=== PATIENT | male | born 1980 | race Caucasian/White ===

== ENCOUNTER 2020-11-22 03:54 | Inpatient (IN) | payer SELFPAY ==
[2020-11-22] VITALS (15 sets, daily range): BP systolic 127–144; BP diastolic 74–88; PULSE 77–100; RESP 13–22; TEMP 36.1–37.1; O2SAT 94–98; BMI 28.2
--- NOTE | ~2020-11-22 | CT_ITS ---
EXAMINATION: CTA chest PE protocol EXAM DATE: 11/22/2020 05:58 INDICATION: L chest pain, shortness of breath hx of PE . TECHNIQUE: Spiral CTA of the chest (pulmonary arteries) was performed with 100 cc Omnipaque 350 intr avenous contrast injection. Images were acquired during the pulmonary arterial phase. Coronal maxi mum intensity projection 3D-reconstructions were created by the technologist on dedicated workstation . Axial, coronal and sagittal reformatted images were reviewed. The dose-length product (DLP) for t his examination was 584.11 mGy-cm. The exposure was tailored according to patient size (auto mA exp osure control), and iterative reconstruction (ASIR) was used as additional dose reduction technique. There is no prior study for comparison. FINDINGS: There is suboptimal pulmonary arterial enhancement, however right lower lobe intralobar an d several segmental right middle and lower lobe pulmonary emboli are confirmed, smaller left lower lo be segmental pulmonary emboli. Moderate clot burden. No thoracic aortic dissection. Left lower lobe airspace disease with volume loss most consistent with segmental atelectasis. Right basilar granulom a. Small left pleural effusion. Tracheobronchial tree is patent. There is no mediastinal, hilar or axillary lymphadenopathy. There is no pneumothorax. Mild cardiomegaly. No evidence of coronary arterial calcification. Upper abdomen is unremarkable. There is thoracic spondylosis without osteo blastic or osteolytic lesions identified. IMPRESSION: 1. Bilateral lower lobe and right middle lobe pulmonary emboli, moderate clot burden. 2. Mild cardiomegaly. 3. Small left pleural effusion. 4. Left basilar segmental atelectasis. Reviewed, dictated and finalized at location D. Findings were verbally conveyed to Liborio Nicholson MD according to STAT Rad report documenta tion.
--- NOTE | ~2020-11-22 | US_ITS ---
EXAMINATION: US venous doppler LE EXAM DATE: 11/22/2020 15:47 INDICATION: Pulmonary embolism. TECHNIQUE: Multiple grayscale, color flow and Doppler images of the lower extremity deep venous syste ms bilaterally were obtained and reviewed. Correlation is made to pulmonary CT earlier same date. FINDINGS: Right side: The right common femoral, femoral and profunda veins demonstrate normal color flow, respi ratory variation, augmentation and compressibility. Compressibility, color flow confirmed within the right popliteal, posterior tibial, peroneal, and greater saphenous veins. Left side: The left common femoral, femoral and profunda veins demonstrate normal color flow, respira tory variation, augmentation and compressibility. Compressibility, color flow confirmed within the l eft popliteal, posterior tibial, peroneal, and greater saphenous veins. IMPRESSION: 1. No lower extremity deep venous thrombosis bilaterally. Reviewed, dictated and finalized at location B.
--- NOTE | ~2020-11-22 | XR_ITS ---
EXAMINATION: XR shoulder LT min 2V INDICATION: Left shoulder pain TECHNIQUE: Four views of the left shoulder are submitted. COMPARISON: None FINDINGS: Normal alignment. No fracture. Glenohumeral and acromioclavicular joint spaces are normal. Soft tissues are unremarkable. IMPRESSION: 1. No acute osseous abnormality. Reviewed, dictated and finalized at location A.
--- NOTE | ~2020-11-22 | XR_ITS ---
EXAMINATION: XR chest 1V portable DATE: 11/22/2020 04:56 INDICATION: Shortness of breath TECHNIQUE: frontal view of the chest was obtained. COMPARISON: None FINDINGS: Small lung volumes with mild opacities at the bilateral lung bases. No pleural effusion or pneumothor ax. The cardiomediastinal silhouette is normal. Visualized bones and soft tissues are unremarkable. IMPRESSION: 1. Small lung volumes with mild bibasilar opacities and favor atelectasis over pneumonia. Reviewed, dictated and finalized at location A.
--- NOTE | 2020-11-22 03:57 | ECG_ITS ---
Measurements Intervals [place] Rate: 99 P: 40 [place]: 144 QRS: 11 QRSD: 93 T: 10 QT: 348 QTc: 448 Interpretive Statements SINUS RHYTHM POSSIBLE LEFT ATRIAL ENLARGEMENT INCOMPLETE RIGHT BUNDLE BRANCH BLOCK POSSIBLE LEFT VENTRICULAR HYPERTROPHY BASELINE ARTIFACT- II, III, AVF, V1, V3-V6 BORDERLINE ECG Electronically Signed On 11-22-2020 11:51:52 CDT by Jalen Acuna D.O.
[2020-11-22 04:37] LABS: Basophils Percent Auto 0.4 % (0.2-1.2); Eosinophils Absolute Auto 0.2 K/mm3 (0-0.3); Hematocrit 38.6 % (42.0-52.0); Hemoglobin 13.1 g/dL (14.0-18.0); Immature Granulocyte Absolute 0.04 K/mm3 (0.00-0.031); Immature Granulocyte Percent A 0.5 % (0-0.5); Lymphocytes Absolute Auto 1.42 K/mm3 (0.9-3.2); Lymphocytes Percent Auto 17.5 % (18.3-44.2); Mean Corpuscular HGB Conc 33.9 g/dl (32-36); Mean Corpuscular Hemoglobin 30.3 pg (26-34); Mean Corpuscular Volume 89.4 fl (80-100); Monocytes Absolute Auto 0.8 K/mm3 (0.1-0.6); Monocytes Percent Auto 9.4 % (2.6-8.5); Neutrophils Absolute Auto 5.7 K/mm3 (1.3-6.7); Neutrophils Percent Auto 70.2 % (45.5-73.1); Platelet Count Result 272 k/mm3 (150-375); Red Blood Count 4.32 M/mm3 (4.6-6.20); Red Cell Distribution Width 11.8 % (11.5-14.5); White Blood Count 8.1 K/mm3 (4.5-10.0)
[2020-11-22 04:49] LABS: Anion Gap 11 mmol/L (8-16); Blood Urea Nitrogen 8 mg/dL (9-20); Calcium 8.6 mg/dL (8.4-10.2); Carbon Dioxide 24 mmol/L (22-30); Chloride 103 mmol/L (98-107); Estimated CRCL calculation 123 ml/min; Estimated Glomerular Filt Rate > 60; Glucose 122 mg/dL (65-110); Potassium 4.2 mmol/L (3.4-5.0); Sodium 138 mmol/L (137-145)
--- NOTE | 2020-11-22 05:21 | ED.GENADULT ---
HPI - General Adult General Chief complaint: Shortness of Breath/Dyspnea Stated complaint: sob, back/shoulder pain Time Seen by Provider: 11/22/20 05:02 History of Present Illness HPI narrative: Patient 39-year-old gentleman who presents the emergency department with chief complaint of shortness of breath. 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 Patient states that he had sudden onset of shortness of breath the other evening and was resting in his cab hoping it would go away and noticed that it would not resolve. The patient states he also has a sharp pleuritic type pain in his chest that is worse with inspiration patient reports that about 10 years ago he had a pulmonary embolism and has been off of anticoagulation Related Data Home Medications Medication Instructions Recorded Confirmed clonazepam 0.5 mg PO DAILY 11/22/20 metoprolol tartrate 50 mg PO DAILY 11/22/20 Allergies Allergy/AdvReac Type Severity Reaction Status Date / Time No Known Allergies Allergy Verified 11/22/20 04:02 Exam Narrative: GENERAL: Well-appearing, well-nourished, and in no acute distress. HEAD: Normocephalic, atraumatic. EYES: PERRLA and EOMI. ENT: Nares clear, no rhinorrhea or epistaxis. Mucous membranes moist. NECK: Supple. CHEST: Clear to auscultation. No respiratory distress. HEART: Regular rate and rhythm. No murmur heard. Normal peripheral pulses. ABDOMEN: Soft, nontender, nondistended, normal active bowel sounds. EXTREMITIES: Normal range of motion. No edema. SKIN: Warm, dry, no rash. NEURO: No focal deficits. Alert and oriented x3. PSYCH: Normal mood and affect. Course Vital Signs Vital signs: Vital Signs Temperature 37.1 C 11/22/20 03:52 Pulse Rate 100 11/22/20 03:52 Respiratory Rate 22 H 11/22/20 03:52 Blood Pressure 142/87 H 11/22/20 03:52 Pulse Oximetry 98 11/22/20 03:52 Temperature 37.1 C 11/22/20 03:52 Pulse Rate 88 11/22/20 06:44 Respiratory Rate 16 11/22/20 06:44 Blood Pressure 132/85 11/22/20 06:44 Pulse Oximetry 95 11/22/20 06:44 Medical Decision Making Vital Signs Vital Signs: Vital Signs Temperature 37.1 C 11/22/20 03:52 Pulse Rate 100 11/22/20 03:52 Respiratory Rate 22 H 11/22/20 03:52 Blood Pressure 142/87 H 11/22/20 03:52 Pulse Oximetry 98 11/22/20 03:52 Temperature 37.1 C 11/22/20 03:52 Pulse Rate 88 11/22/20 06:44 Respiratory Rate 16 11/22/20 06:44 Blood Pressure 132/85 11/22/20 06:44 Pulse Oximetry 95 11/22/20 06:44 Lab Data Result diagrams: 11/22/20 04:32 11/22/20 04:32 Labs: Lab Results 11/22/20 11/22/20 11/22/20 Range/Units 04:31 04:32 04:32 WBC 8.1 (4.5-10.0) K/mm3 RBC 4.32 L (4.6-6.20) M/mm3 Hgb 13.1 L (14.0-18.0) g/dL Hct 38.6 L (42.0-52.0) % MCV 89.4 (80-100) fl MCH 30.3 (26-34) pg MCHC 33.9 (32-36) g/dl RDW 11.8 (11.5-14.5) % Plt Count 272 (150-375) k/mm3 MPV 10.0 (7.4-10.4) fl Immature Gran % (Auto) 0.5 (0-0.5) % Neut % (Auto) 70.2 (45.5-73.1) % Lymph % (Auto) 17.5 L (18.3-44.2) % [place] % (Auto) 9.4 H (2.6-8.5) % Eos % (Auto) 2.0 (0-4.4) % Baso % (Auto) 0.4 (0.2-1.2) % Lymph # (Auto) 1.42 (0.9-3.2) K/mm3 [place] # (Auto) 0.8 H (0.1-0.6) K/mm3 Eos # (Auto) 0.2 (0-0.3) K/mm3 Baso # (Auto) 0.0 (0.0-0.1) K/mm3 Abs Immat Gran (auto) 0.04 H (0.00-0.031) K/mm3 Absolute Neuts (auto) 5.7 (1.3-6.7) K/mm3 Absolute Nucleated RBC 0.0 (0.0-0.012) K/mm3 Nucleated RBC % 0.0 (0.0-0.2) % PT (11.1-14.7) Seconds INR APTT (22.3-36.8) SECONDS Sodium 138 (137-145) mmol/L Potassium 4.2 (3.4-5.0) mmol/L Chloride 103 (98-107) mmol/L Carbon Dioxide 24 (22
[2020-11-22 05:34] LABS: Alveolar/Arterial O2 Gradient 37.5 mmHg; Base Excess ABG 1.2 mEq/l (+/-2.0); Device ROOM AIR; Fractional Inspired Oxygen 21 %; HCO3 ABG 25.4 mEq/l (22.0-26.0); Oxygen Content ABG 17.9 %vol (16.0-22.0); Oxygen Saturation ABG 93.5 % (95.0-100.0); Oxyhemoglobin 92.7 % THb (90.0-100.0); PCO2 ABG 38.9 mmHg (35.0-45.0); PO2 ABG 65.6 mmHg (80.0-100.0); PO2 FiO2 Ratio Arterial Blood 3.12 %; Site Drawn RIGHT BRACHIAL; Total Hemoglobin 13.7 g/dL (12.0-18.0); pH ABG 7.432 (7.350-7.450)
[2020-11-22 05:34] LABS: Alanine Aminotransferase 15 U/L (4-50); Albumin Level 4.1 g/dL (3.5-5.1); Alkaline Phosphatase 60 U/L (38-126); Aspartate Amino Transferase 21 U/L (17-59); Bilirubin,Total 0.6 mg/dL (0.2-1.3)
[2020-11-22 05:46] LABS: NT Pro B Type Natriuretic Pept 22 pg/mL (5-100); Troponin I < 0.012 ng/mL (0.000-0.034)
[2020-11-22 05:48] LABS: Lactic Acid Reflex 1.6 mmol/L (0.7-2.1)
[2020-11-22 05:49] LABS: INR 0.9; Partial Thromboplastin Time 26.4 SECONDS (22.3-36.8); Prothrombin Time 12.5 Seconds (11.1-14.7)
[2020-11-22 07:42] LABS: Troponin I < 0.012 ng/mL (0.000-0.034)
[2020-11-22] MEDS: LORazepam INJ (*CRX) 2 MG/ML VIAL 0.5 MG IV PUSH (07:52)
[2020-11-22] MEDS: HEPARIN SODIUM 5,000 UNITS/ML VIAL 7000 UNITS IV PUSH ×2 (07:53→15:25)
[2020-11-22] MEDS: HEPARIN SOD/D5W 100 UNITS/ML 25,000 UNITS/250 ML BAG 15 UNITS IV CONT (07:58)
[2020-11-22 08:52] LABS: Partial Thromboplastin Time 139.4 SECONDS (22.3-36.8)
[2020-11-22] MEDS: MORPHINE SULFATE (*CRX) 4 MG/ML INJ IV PUSH (09:13)
[2020-11-22] MEDS: ONDANSETRON INJ 4 MG/2 ML VIAL IV PUSH (09:14)
--- NOTE | 2020-11-22 12:42 | PC.NURSE ---
PT arrived to chest pain center at 1204. C/o chest pain, more with inhaling. RANDOLPH Oliver called at 1235.
--- NOTE | 2020-11-22 13:00 | PM.IMHP ---
H&P: HPI History of Present Illness Date/Time: 11/22/20 13:00 Chief Complaint: Shortness of breath. Narrative: This is a 39-year-old male with history of pulmonary embolism and hypertension who presented to the emergency department earlier today for evaluation of shortness of breath. 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 Within the last several days he developed discomfort in his left posterior upper leg/lower buttock region which he initially attributed to the driving. Yesterday afternoon while unloading his truck he developed sudden onset of lightheadedness as well as pleuritic pain in his left anterior chest radiating into the shoulder as well as mild shortness of breath. He was able to sleep okay overnight but when he woke this morning he was much more short of breath with racing heart prompting him to come in for evaluation. CTA of the chest showed bilateral lower lobe and right middle lobe pulmonary emboli with moderate clot burden and he is being admitted in this setting. At the time my evaluation he continues to feel a short of breath but he admits that he is quite anxious. He is currently rating in his pleuritic pain 7/10. Regarding his history of pulmonary embolism, he was evaluated by pulp mill supervisor in [place] and the workup was reportedly ?inconclusive.? Aside from an on-call there is no other family history of venous thromboembolism. He has not been vaccinated for COVID. No history of malignancy or concerns for such. Review of Systems Review of Systems: Twelve systems were reviewed. Weight has remained stable. No fever, chills, or sweats. No recent cold or flu symptoms. No syncope. He denies nausea, vomiting, diarrhea. Except as documented, all other systems were reviewed and are negative. [facility] Past Medical History Medical History (Updated 11/22/20 @ 14:35 by Tatianna Oliver PA-C) Anxiety Hypertension Nicotine dependence Pulmonary embolism 2008 and November 2020. Evaluated by pulp mill supervisor in [place] with ?inconclusive? hypercoagulability workup. Thoracic vertebral fracture (2000) T1 and T3 fractures sustained an accident. Surgical History Surgical History History of arthroscopy of right knee (2015) Family History Family History (Updated 11/22/20 @ 14:33 by Tatianna Oliver PA-C) Other Deep venous thrombosis Social History Social History (Updated 11/22/20 @ 14:33 by Tatianna Oliver PA-C) Social History: The patient lives in [place], [place] with his and 3 children. He smoked a pack of cigarettes a day for about 25 years and now vapes. No alcohol or illicit substance abuse. He designates his , Arti Luu, as his surrogate decision maker and wishes to be a full code. Meds Home Medications and Allergies Home Medications Medication Instructions Recorded Confirmed Type clonazepam 0.5 mg PO PRN PRN 11/22/20 11/22/20 History metoprolol tartrate 50 mg PO BID 11/22/20 11/22/20 History Allergies Allergy/AdvReac Type Severity Reaction Status Date / Time No Known Allergies Allergy Verified 11/22/20 04:02 Vital Signs Vital Signs - 24 hr 11/22/20 03:52 11/22/20 04:51 11/22/20 06:15 Temperature 98.8 F Pulse Rate 100 95 90 Respiratory Rate 22 H 18 19 Blood Pressure 142/87 H 134/88 132/84 Pulse Oximetry 98 95 96 11/22/20 06:44 11/22/20 07:30 11/22/20 07:51 Temperature Pulse Rate 88 88 93 Respiratory Rate 16 15 Blood Pressure 132/85 144/84 H Pulse Oximetry 95 96 11/22/20 09:30 11/22/20 11:30 11/22/20 12:55 Temperature Pulse Rate 87 92 94 Respiratory Rate 21 H 20 Blood Pressure 129/78 128/83 Pulse Oximetry 94 95 Exam Narrative: General: Well-developed, well-nourished male sitting up in bed. Moderately ill in appearance. Weight: 99.7 kg. BMI: 28.2. HEENT: PERRL, EOMI. Sclerae anicteric. Oral mucosa moist. Oropharynx clear. Neck
--- NOTE | 2020-11-22 13:05 | ECHO_ITS ---
Patient Info Name: Ghanshyam Luu Age: 39 years : 1980 Gender: Male Ht: 74 in Wt: 220 lbs BSA: 2.30 m2 HR: 92 bpm BP: 128 / 83 mmHg Technical Quality: Fair Exam Date: 11/22/2020 2:47 PM Exam Location: [facility] Pul[facility] Patient Status: Outpatient Admit Date: 11/22/2020 Staff Ordering Physician: Tatianna Oliver PA-C Culinary Worker: Gui Shine RDCS, RT Attending Provider: Trish Feliz MD Referring Physician: Melody LIRA; Exam Type: CA echo doppler color flow Study Info Indications I27.82 - Chronic pulmonary embolism Complete two-dimensional, color flow and Doppler transthoracic echocardiogram is performed. Strain analysis performed. Summary 1. Complete two-dimensional, color flow and Doppler transthoracic echocardiogram is performed. 2. Left ventricular chamber dimension is normal. 3. Left ventricular systolic function is normal, estimated at 60-65%. 4. There is mildly increased left ventricular wall thickness. 5. The left ventricular diastolic function is normal. Tissue doppler is not performed. 6. Global longitudinal strain is mildly abnormal at -16.3%. Left Ventricle Global longitudinal strain is mildly abnormal at -16.3%. Left ventricular chamber dimension is normal. Left ventricular systolic function is normal, estimated at 60-65%. There is mildly increased left ventricular wall thickness. The left ventricular diastolic function is normal. Tissue doppler is not performed. Right Ventricle Right ventricular systolic function is normal based on normal TAPSE 2.2 cm. Right ventricular chamber dimension is not well visualized. Left Atria Left atrial chamber dimension is normal. Right Atria Right atrial chamber dimension is normal. Aortic Valve The aortic valve is trileaflet. There is no aortic valve stenosis. There is no aortic valve regurgitation. Pulmonic Valve There is no pulmonic regurgitation. Mitral Valve There is no mitral valve stenosis. There is no mitral valve regurgitation. Tricuspid Valve There is no tricuspid valve regurgitation. Pericardium/Pleural There is no pericardial effusion. Inferior Vena Cava Normal inferior vena cava with >50% collapse upon inspiration consistent with normal right atrial pressure, 5 mmHg. Aorta The aortic root size at the sinus of Valsalva is normal. Left Ventricular Outflow Tract Name Value Normal LVOT 2D LVOT Diameter 2.1 cm LVOT Doppler LVOT Peak Gradient 4 mmHg LVOT Mean Gradient 2 mmHg LVOT VTI 17 cm LVOT VTI/AV VTI Ratio 1.1 LVOT Stroke Volume 59 ml LVOT CO 5.5 l/min LVOT CI 2.4 l/min/m2 Mitral Valve Name Value Normal MV Doppler MV
[2020-11-22] MEDS: MORPHINE SULFATE (*CRX) 2 MG/ML INJ IV PUSH ×2 (13:16→14:15)
[2020-11-22] MEDS: NICOTINE (*PBKC) 14 MG PATCH 1 PATCH TRANSDERM (13:18)
[2020-11-22] MEDS: HYDROcodone/acetaminophen (*CRX) 5-325 MG TABLET 1 TAB PO ×2 (13:37→22:02)
--- NOTE | 2020-11-22 14:16 | PC.NURSE ---
Pt c/o continuous pain, 7-10/15. Tatianna DICKSON at bedside and additional 2 mg Morphine ordered.
[2020-11-22 15:14] LABS: Partial Thromboplastin Time 52.4 SECONDS (22.3-36.8)
[2020-11-22] MEDS: clonazePAM (*CRX) 0.5 MG TABLET PO ×2 (15:29→23:04)
--- NOTE | 2020-11-22 15:32 | PC.NURSE ---
Pt to X-ray for Venous doppler
[2020-11-22] MEDS: HYDROmorphone HCL INJ (*CRX) 1 MG/ML SYR 0.5 MG IV PUSH ×3 (18:02→23:52)
[2020-11-22] MEDS: METOPROLOL TARTRATE 50 MG TAB PO (20:57)
[2020-11-22 21:24] LABS: Partial Thromboplastin Time 107.2 SECONDS (22.3-36.8)
[2020-11-22] MEDS: HEPARIN SOD/D5W 100 UNITS/ML 25,000 UNITS/250 ML BAG 17 UNITS IV CONT (23:07)
[2020-11-23] VITALS (19 sets, daily range): BP systolic 109–150; BP diastolic 66–95; PULSE 65–93; RESP 14–16; TEMP 36.3–36.9; O2SAT 93–98
[2020-11-23] MEDS: HYDROmorphone HCL INJ (*CRX) 1 MG/ML SYR 2 MG IV PUSH (01:22)
[2020-11-23] MEDS: ONDANSETRON INJ 4 MG/2 ML VIAL IV PUSH (01:27)
[2020-11-23] MEDS: HYDROcodone/acetaminophen (*CRX) 5-325 MG TABLET 1 TAB PO ×4 (04:11→23:21)
[2020-11-23 04:32] LABS: Basophils Percent Auto 0.3 % (0.2-1.2); Eosinophils Absolute Auto 0.3 K/mm3 (0-0.3); Eosinophils Percent Auto 3.9 % (0-4.4); Hematocrit 37.2 % (42.0-52.0); Hemoglobin 12.2 g/dL (14.0-18.0); Immature Granulocyte Absolute 0.01 K/mm3 (0.00-0.031); Immature Granulocyte Percent A 0.1 % (0-0.5); Lymphocytes Absolute Auto 2.54 K/mm3 (0.9-3.2); Lymphocytes Percent Auto 36.3 % (18.3-44.2); Mean Corpuscular HGB Conc 32.8 g/dl (32-36); Mean Corpuscular Hemoglobin 29.8 pg (26-34); Mean Corpuscular Volume 90.7 fl (80-100); Mean Platelet Volume 9.8 fl (7.4-10.4); Monocytes Absolute Auto 0.6 K/mm3 (0.1-0.6); Monocytes Percent Auto 8.6 % (2.6-8.5); Neutrophils Absolute Auto 3.6 K/mm3 (1.3-6.7); Neutrophils Percent Auto 50.8 % (45.5-73.1); Platelet Count Result 275 k/mm3 (150-375); Red Cell Distribution Width 11.9 % (11.5-14.5)
[2020-11-23 04:48] LABS: Partial Thromboplastin Time 81.7 SECONDS (22.3-36.8)
[2020-11-23] MEDS: HYDROmorphone HCL INJ (*CRX) 1 MG/ML SYR IV PUSH ×6 (05:26→23:45)
[2020-11-23] MEDS: NICOTINE (*PBKC) 14 MG PATCH 1 PATCH TRANSDERM (08:16)
[2020-11-23] MEDS: METOPROLOL TARTRATE 50 MG TAB PO ×2 (08:18→20:48)
[2020-11-23] MEDS: clonazePAM (*CRX) 0.5 MG TABLET PO (09:44)
[2020-11-23] MEDS: LIDOCAINE 5% PATCH 1 PATCH TRANSDERM (11:52)
[2020-11-23] MEDS: KETOROLAC 30 MG/ML VIAL (*BKC) IV PUSH ×2 (12:03→21:00)
[2020-11-23] MEDS: HEPARIN SOD/D5W 100 UNITS/ML 25,000 UNITS/250 ML BAG 17 UNITS IV CONT (13:35)
[2020-11-23 14:16] LABS: Partial Thromboplastin Time 60.7 SECONDS (22.3-36.8)
[2020-11-23] MEDS: HEPARIN SODIUM 5,000 UNITS/ML VIAL 3500 UNITS IV PUSH (14:43)
--- NOTE | 2020-11-23 17:37 | PM.IMPN ---
Progress Note: A&P Assessment and Plan (1) Bilateral pulmonary embolism: Code(s): I26.99 - Other pulmonary embolism without acute cor pulmonale Status: Acute Assessment and Plan: Imaging shows bilateral lower lobe and right middle lobe pulmonary emboli with moderate clot burden as well as mild cardiomegaly. He has been started on a heparin drip . Given recurrent pulmonary embolism he may very well require long-term anticoagulation and was encouraged to follow-up with his mds rn in [place] upon returning home. (2) Nicotine dependence: Code(s): F17.200 - Nicotine dependence, unspecified, uncomplicated Status: Acute Assessment and Plan: Nicotine patch available per patient request. Smoking cessation is encouraged and was discussed. (3) Hypertension: Code(s): I10 - Essential (primary) hypertension Status: Acute Assessment and Plan: Blood pressures were reviewed and they are stable. Continue metoprolol b.i.d.. (4) Anxiety: Code(s): F41.9 - Anxiety disorder, unspecified Status: Acute Assessment and Plan: Continue clonazepam 0.5 mg as needed for anxiety. (5) Shoulder pain, left: Code(s): M25.512 - Pain in left shoulder Status: Acute Assessment and Plan: Unclear cause; no evidence of fever, swelling, rash or source of infection. No recent trauma. Imaging studies are unrevealing. Pain management for now. Time Spent With Patient Time with patient: 15 - 25 minutes Subjective Date/time seen: 11/23/20 17:37 Patient reports severe left shoulder pain. Review of Systems Review of Systems: All systems reviewed & are unremarkable except as noted in HPI and below Constitutional: Constitutional: Reports no additional constitutional complaints Cardiovascular: Cardiovascular: Denies no additional cardiovascular complaints Respiratory: Respiratory: Reports dyspnea Comments: Chest pain Gastrointestinal: Gastrointestinal: Reports no additional gastrointestinal complaints Musculoskeletal: Musculoskeletal: Denies myalgias, Reports arthralgias, Denies joint swelling and Denies stiffness Comments: Severe left shoulder pain. No swelling or rash. Integumentary/Breasts: Skin/Breast: Denies rash Neurologic: Reports system reviewed and no additional complaints, except as documented Psychiatric: Psychiatric: Reports no additional psychiatric complaints Exam Const: General: no acute distress HENMT: Mouth: Yes Abnormal oral and palatal mucosa present Eyes: Sclera: sclerae normal EOM: EOMs intact bilaterally Neck: Neck: no JVD Resp: Effort & Inspection: normal respiratory effort Auscultation: clear to auscultation bilaterally Cardio: Rate: regular rate Rhythm: regular rhythm GI: GI Palp: Yes Soft to palpation Extrem: Left upper extremity: normal to inspection and normal capillary refill; ROM limited, no cyanosis, no edema, joint enlargement noted and shoulder/upper arm not examined Psych: Mental Status: mental status grossly normal Thought content: Yes Normal thought content present Objective Data Vital Signs Vital Signs: Vital Signs - 24 hr 11/22/20 18:00 11/22/20 20:00 11/22/20 20:57 Temperature 98.0 F Pulse Rate 98 85 84 Respiratory Rate 13 Blood Pressure 127/74 Pulse Oximetry 96 11/22/20 22:00 11/23/20 00:00 11/23/20 02:00 Temperature 98.0 F Pulse Rate 77 81 87 Respiratory Rate 16 Blood Pressure 150/95 H Pulse Oximetry 97 11/23/20 04:00 11/23/20 06:00 11/23/20 07:31 Temperature 97.8 F Pulse Rate 83 87 87 Respiratory Rate 16 Blood Pressure 120/72 Pulse Oximetry 93 11/23/20 07:58 11/23/20 08:00 11/23/20 08:18 Temperature 97.3 F L Pulse Rate 89 85 89 Respiratory Rate 16 Blood Pressure 123/66 Pulse Oximetry 94 11/23/20 09:17 11/23/20 10:00 11/23/20 11:53 Temperature 98.4 F Pulse Rate 83 73 84 Respiratory Rate 16 Blood Pressure
[2020-11-23 20:48] LABS: Partial Thromboplastin Time 98.4 SECONDS (22.3-36.8)
[2020-11-24] VITALS (14 sets, daily range): BP systolic 102–150; BP diastolic 70–82; PULSE 68–92; RESP 14–18; TEMP 36.4–36.8; O2SAT 96–98
[2020-11-24] MEDS: KETOROLAC 30 MG/ML VIAL (*BKC) IV PUSH ×3 (03:05→21:47)
[2020-11-24] MEDS: HYDROmorphone HCL INJ (*CRX) 1 MG/ML SYR IV PUSH ×6 (03:08→21:46)
[2020-11-24 03:17] LABS: Partial Thromboplastin Time 118.2 SECONDS (22.3-36.8)
[2020-11-24 03:17] LABS: Hematocrit 35.5 % (42.0-52.0); Hemoglobin 11.8 g/dL (14.0-18.0); Mean Corpuscular HGB Conc 33.2 g/dl (32-36); Mean Corpuscular Hemoglobin 29.6 pg (26-34); Mean Corpuscular Volume 89.2 fl (80-100); Mean Platelet Volume 10.1 fl (7.4-10.4); Platelet Count Result 311 k/mm3 (150-375); Red Blood Count 3.98 M/mm3 (4.6-6.20); Red Cell Distribution Width 11.8 % (11.5-14.5); White Blood Count 6.4 K/mm3 (4.5-10.0)
[2020-11-24] MEDS: HEPARIN SOD/D5W 100 UNITS/ML 25,000 UNITS/250 ML BAG 17 UNITS IV CONT (03:30)
[2020-11-24] MEDS: HYDROcodone/acetaminophen (*CRX) 5-325 MG TABLET 1 TAB PO ×3 (05:21→18:35)
[2020-11-24] MEDS: LIDOCAINE 5% PATCH 1 PATCH TRANSDERM (08:32)
[2020-11-24] MEDS: NICOTINE (*PBKC) 14 MG PATCH 1 PATCH TRANSDERM (08:33)
[2020-11-24] MEDS: clonazePAM (*CRX) 0.5 MG TABLET PO ×2 (08:33→09:22)
[2020-11-24] MEDS: METOPROLOL TARTRATE 50 MG TAB PO ×2 (08:45→21:46)
[2020-11-24 09:59] LABS: Partial Thromboplastin Time 71.4 SECONDS (22.3-36.8)
--- NOTE | 2020-11-24 12:15 | PC.NURSE ---
Patient notified this RN that he had some red blood on his toilet paper when he wiped. Patient stated that he did not have a bowel movement, it was only flatulence. This RN notified Dr. Vero Polanco of bleeding and doctor stated she will come assess the patient.
[2020-11-24 15:34] LABS: Partial Thromboplastin Time 63.6 SECONDS (22.3-36.8)
[2020-11-24] MEDS: HEPARIN SODIUM 5,000 UNITS/ML VIAL 3500 UNITS IV PUSH (15:44)
--- NOTE | 2020-11-24 17:12 | PM.IMPN ---
Progress Note: A&P Assessment and Plan (1) Bilateral pulmonary embolism: Code(s): I26.99 - Other pulmonary embolism without acute cor pulmonale Status: Acute Assessment and Plan: Imaging shows bilateral lower lobe and right middle lobe pulmonary emboli with moderate clot burden as well as mild cardiomegaly. He has been started on a heparin drip . Given recurrent pulmonary embolism he will require long-term anticoagulation and was encouraged to follow-up with his acid etch operator in [place] upon returning home. Patient is currently evaluated for discharged after GI clearance. (2) Nicotine dependence: Code(s): F17.200 - Nicotine dependence, unspecified, uncomplicated Status: Acute Assessment and Plan: Nicotine patch available per patient request. Smoking cessation is encouraged and was discussed. (3) Hypertension: Code(s): I10 - Essential (primary) hypertension Status: Acute Assessment and Plan: Blood pressures were reviewed and they are stable. Continue metoprolol b.i.d.. (4) Anxiety: Code(s): F41.9 - Anxiety disorder, unspecified Status: Acute Assessment and Plan: Continue clonazepam 0.5 mg as needed for anxiety. (5) Shoulder pain, left: Code(s): M25.512 - Pain in left shoulder Status: Acute Assessment and Plan: Improving. Continue Pain management for now. (6) Blood in stool: Code(s): K92.1 - Melena Status: Acute Assessment and Plan: Monitor H/H; currently patient is stable. GI consult in AM. Subjective Date/time seen: 11/24/20 17:12 Patient is seen at the bedside. The shoulder pain is much improved. There is no chest pain/shortness of breath. He reports small red blood in stools, second episode. Review of Systems Review of Systems: All systems reviewed & are unremarkable except as noted in HPI and below Constitutional: Constitutional: Reports no additional constitutional complaints Cardiovascular: Cardiovascular: Denies no additional cardiovascular complaints and Reports dyspnea Respiratory: Respiratory: Reports dyspnea Gastrointestinal: Gastrointestinal: Denies abdominal pain, Reports hematochezia, Denies diarrhea, Denies nausea, Denies vomiting and Denies hematemesis Musculoskeletal: Musculoskeletal: Denies myalgias, Reports arthralgias, Denies joint swelling and Denies stiffness Integumentary/Breasts: Skin/Breast: Denies rash Neurologic: Reports system reviewed and no additional complaints, except as documented Psychiatric: Psychiatric: Reports no additional psychiatric complaints Exam Narrative: General: Well-developed, well-nourished male sitting up in bed. Moderately ill in appearance. Weight: 99.7 kg. BMI: 28.2. HEENT: PERRL, EOMI. Sclerae anicteric. Oral mucosa moist. Oropharynx clear. Neck: Supple. No JVD. Respiratory: Shallow respirations to avoid pleuritic pain. Lungs are clear to auscultation. Cardiovascular: Regular rate and rhythm with S1-S2. No murmur. Gastrointestinal: Abdomen is soft, nontender, and nondistended with positive bowel sounds. Skin: Warm and dry. No rash or lesions on limited exam. Extremities: No cyanosis, clubbing, or edema. Radial and pedal pulses intact. Negative Amnada sign bilaterally. Neurological: Alert. Cranial nerves 2-12 are grossly intact. No gross focal deficits to casual conversation. Psychiatric: Pleasant and cooperative with normal mood and affect. Const: General: no acute distress HENMT: Mouth: Yes Abnormal oral and palatal mucosa present Eyes: Sclera: sclerae normal EOM: EOMs intact bilaterally Neck: Neck: no JVD Resp: Effort & Inspection: normal respiratory effort Auscultation: clear to auscultation bilaterally Cardio: Rate: regular rate Rhythm: regular rhythm Extrem: Left upper extremity: normal to inspection and normal capillary refill; ROM limited, no cyanosis, no edema, joint enlargement noted and shoulder/u
[2020-11-24 17:24] LABS: Hemoglobin 12.1 g/dL (14.0-18.0)
[2020-11-24] MEDS: HEPARIN SOD/D5W 100 UNITS/ML 25,000 UNITS/250 ML BAG 19 UNITS IV CONT (18:25)
[2020-11-24 22:12] LABS: Hematocrit 36.2 % (42.0-52.0); Hemoglobin 12.1 g/dL (14.0-18.0); Mean Corpuscular HGB Conc 33.4 g/dl (32-36); Mean Corpuscular Hemoglobin 30.1 pg (26-34); Platelet Count Result 302 k/mm3 (150-375); Red Blood Count 4.02 M/mm3 (4.6-6.20); Red Cell Distribution Width 11.9 % (11.5-14.5); White Blood Count 6.3 K/mm3 (4.5-10.0)
[2020-11-24 22:30] LABS: Partial Thromboplastin Time 110.7 SECONDS (22.3-36.8)
[2020-11-25] VITALS (10 sets, daily range): BP systolic 108–133; BP diastolic 70–80; PULSE 64–82; RESP 14–16; TEMP 36–36.6; O2SAT 96–98
[2020-11-25] MEDS: HYDROcodone/acetaminophen (*CRX) 5-325 MG TABLET 1 TAB PO ×2 (00:55→07:38)
[2020-11-25] MEDS: HYDROmorphone HCL INJ (*CRX) 1 MG/ML SYR IV PUSH ×3 (00:55→08:43)
[2020-11-25] MEDS: KETOROLAC 30 MG/ML VIAL (*BKC) IV PUSH ×2 (04:58→11:14)
[2020-11-25 05:23] LABS: Partial Thromboplastin Time 80.7 SECONDS (22.3-36.8)
[2020-11-25] MEDS: METOPROLOL TARTRATE 50 MG TAB PO (08:41)
[2020-11-25] MEDS: LIDOCAINE 5% PATCH 1 PATCH TRANSDERM (08:41)
[2020-11-25] MEDS: NICOTINE (*PBKC) 14 MG PATCH 1 PATCH TRANSDERM (08:42)
--- NOTE | 2020-11-25 10:23 | ECG_ITS ---
Measurements Intervals [place] Rate: 67 P: 52 [place]: 174 QRS: 24 QRSD: 103 T: 20 QT: 368 QTc: 389 Interpretive Statements SINUS RHYTHM INCOMPLETE RIGHT BUNDLE BRANCH BLOCK ST ELEVATION IN DIFFUSE LEADS, PROBABLY EARLY REPOLARIZATION MINIMAL Q WAVES- HIGH LATERAL LEADS BORDERLINE ECG Electronically Signed On 11-25-2020 10:55:52 CDT by Jalen Acuna D.O.
[2020-11-25] MEDS: clonazePAM (*CRX) 0.5 MG TABLET PO (10:45)
--- NOTE | 2020-11-25 11:09 | WPDGICN ---
Assessment and Plan Assessment and plan (1) Blood in stool: Code(s): K92.1 - Melena Status: Acute Assessment and Plan: Patient with bright red blood per rectum while wiping appears to be most related to hemorrhoids by history. This is cleared very promptly from his GI tract. Likely associated with heparin anticoagulation. At the present time see no need for emergency evaluation. Would recommend that if additional bleeding be performed outpatient colonoscopy can be arranged. Currently hemoglobin stable with no additional bleeding to suggesting this was hemorrhoidal. Anticipate patient following up with primary care physician regarding this [place] after discharge. (2) Shoulder pain, left: Code(s): M25.512 - Pain in left shoulder Status: Acute (3) Pulmonary embolism: Qualifiers: Pulmonary embolism type: multiple subsegmental (without acute cor pulmonale) Qualified Code(s): I26.94 - Multiple subsegmental pulmonary emboli without acute cor pulmonale Code(s): I26.99 - Other pulmonary embolism without acute cor pulmonale Status: Acute GI Consult Note Consult date/time: 11/25/20 11:09 HPI: Ghanshyam Luu is a 39 year old male I am asked to see for rectal bleeding. 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 Evaluation revealed that he had bilateral pulmonary emboli. He has been on a heparin drip since that time. Yesterday afternoon he noticed small amount of bright red blood with wiping. He has had none since. He has had several normal bowel movements subsequently. Patient reports that occasionally in the past he has had a small amount of bright red blood with bowel movement. Denies any pain. He has had regular bowel movements. Family history is noncontributory. Patient denies abdominal or rectal pain. Currently is on a heparin drip. [facility] Past Medical History Medical History (Updated 11/24/20 @ 17:16 by Vero Polanco MD) Anxiety Hypertension Nicotine dependence Pulmonary embolism 2008 and November 2020. Evaluated by computer assembler in [place] with ?inconclusive? hypercoagulability workup. Thoracic vertebral fracture (2000) T1 and T3 fractures sustained an accident. Surgical History Surgical History History of arthroscopy of right knee (2016) Family History Family History Other Deep venous thrombosis Grandparent Diabetes mellitus Acute myocardial infarction Congestive heart failure Lung cancer Hypertension Cerebrovascular accident Mother Lupus Social History Social History (Updated 11/22/20 @ 14:33 by Tatianna Oliver PA-C) Social History: The patient lives in [place], [place] with his and 3 children. He smoked a pack of cigarettes a day for about 25 years and now vapes. No alcohol or illicit substance abuse. He designates his , Arti Luu, as his surrogate decision maker and wishes to be a full code. Meds Home Medications and Allergies Home Medications Medication Instructions Recorded Confirmed Type clonazepam 0.5 mg PO PRN PRN 11/22/20 11/22/20 History metoprolol tartrate 50 mg PO BID 11/22/20 11/22/20 History hydrocodone-acetaminophen 1 tablet PO Q8H PRN 30 Days #30 11/24/20 Rx tablet Allergies Allergy/AdvReac Type Severity Reaction Status Date / Time No Known Allergies Allergy Verified 11/22/20 04:02 Vital Signs Vital Signs - 24 hr 11/24/20 11:19 11/24/20 13:24 11/24/20 15:55 Temperature 98.2 F 98.2 F Pulse Rate 82 76 81 Respiratory Rate 18 18 Blood Pressure 135/80 150/74 H Pulse Oximetry 96 97 11/24/20 17:12 11/24/20 19:40 11/24/20 20:00 Temperature 97.6 F Pulse Rate 74 75 75 Respiratory Rate 14 14 Blood Pressure 126/75 Pulse Oximetry 98 98 11/24/20
[2020-11-25 12:10] LABS: Partial Thromboplastin Time 75.2 SECONDS (22.3-36.8)
[2020-11-25 12:14] LABS: Troponin I < 0.012 ng/mL (0.000-0.034)
[2020-11-25] MEDS: HYDROcodone/acetaminophen (*CRX) 7.5-325 MG TABLET 1 TAB PO (12:45)
--- NOTE | 2020-11-25 13:35 | PC.NURSE ---
is supposed to be here in about 2 hours to pick patient up. Heparin stopped at 1320 as directed
[2020-11-25] MEDS: RIVAROXABAN 15 MG TABLET PO (14:30)
--- NOTE | 2020-11-25 15:14 | PM.DS ---
DS: Admitting Diagnosis Discharge Date 11/25/2020 Admitting Diagnosis Acute pulmonary embolism DS: Discharge Diagnosis Discharge Diagnosis (1) Bilateral pulmonary embolism: Code(s): I26.99 - Other pulmonary embolism without acute cor pulmonale Status: Acute Assessment and Plan: Imaging shows bilateral lower lobe and right middle lobe pulmonary emboli with moderate clot burden as well as mild cardiomegaly. He has been started on a heparin drip . Given recurrent pulmonary embolism he will require long-term anticoagulation and was encouraged to follow-up with his chief guard in [place] upon returning home. Patient is currently evaluated for discharged after GI clearance. (2) Hypertension: Code(s): I10 - Essential (primary) hypertension Status: Acute Assessment and Plan: Blood pressures were reviewed and they are stable. Continue metoprolol b.i.d.. (3) Anxiety: Code(s): F41.9 - Anxiety disorder, unspecified Status: Acute Assessment and Plan: Continue clonazepam 0.5 mg as needed for anxiety. (4) Shoulder pain, left: Code(s): M25.512 - Pain in left shoulder Status: Acute Assessment and Plan: Improving. Continue Pain management for now. (5) Blood in stool: Code(s): K92.1 - Melena Status: Acute Assessment and Plan: Monitor H/H; currently patient is stable. GI consult in AM. (6) Nicotine dependence: Code(s): F17.200 - Nicotine dependence, unspecified, uncomplicated Status: Acute Assessment and Plan: Nicotine patch available per patient request. Smoking cessation is encouraged and was discussed. DS: Summary Hospital Course Reason for hospitalization: shortness of breath Hospital Course: This is a 39-year-old male with history of pulmonary embolism and hypertension who presented to the emergency department on 11/22/2020 for evaluation of shortness of breath. 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 Within the last several days he developed discomfort in his left posterior upper leg/lower buttock region which he initially attributed to the driving. On the day prior to admission while unloading his truck he developed sudden onset of lightheadedness as well as pleuritic pain in his left anterior chest radiating into the shoulder as well as mild shortness of breath. He was able to sleep okay overnight but when he woke this morning he was much more short of breath with racing heart prompting him to come in for evaluation. CTA of the chest showed bilateral lower lobe and right middle lobe pulmonary emboli with moderate clot burden and he is being admitted in this setting. At the time my evaluation he continues to feel a short of breath but he admits that he is quite anxious. He is currently rating in his pleuritic pain 7/10. Regarding his history of pulmonary embolism, he was evaluated by chief guard in [place] and the workup was reportedly ?inconclusive.? Aside from an on-call there is no other family history of venous thromboembolism. He has not been vaccinated for COVID. No history of malignancy or concerns for such. The patient was treated with heparin drip. Imaging shows bilateral lower lobe and right middle lobe pulmonary emboli with moderate clot burden as well as mild cardiomegaly. Given recurrent pulmonary embolism he may very well require long-term anticoagulation and was encouraged to follow-up with his chief guard in [place] upon returning home. He was discharged on Xarelto 15 mg PO BID for 21 days followed by 20 mg PO daily. Status at Discharge Functional status at discharge: independent ambulation Overall status at discharge: patient is back to baseline Time Spent with Patient Time attestation: Total time spent providing and/or coordinating discharge services: Time spent: Greater than 30 minutes Exam Narrative: General: Well-developed, well-nourished m
== END 2020-11-25 16:23 | disposition home or self-care (01) | DRG 134 ==
LOC: ANHED 07:43 → ANHIMU 09:56 → ANHCPC 11:46
PROVIDERS: Admitting Provider Internal Medicine; Emergency Provider Emergency Medicine; Visit Provider Internal Medicine
DX: I26.99 Other pulmonary embolism without acute cor pulmonale (principal); I10 Essential (primary) hypertension; K92.1 Melena; F41.9 Anxiety disorder, unspecified; M25.512 Pain in left shoulder; F17.290 Nicotine dependence, other tobacco product, uncomplicated
CPT/HCPCS: 36415; 36600; 71045; 71275; 73030; 80048; 80076; 82805; 83605; 83880; 84484; 85014; 85018; 85025; 85027; 85610; 85730; 93005; 93306; 93970; 96365; 96366; 96374; 96375; 96376; 99285; A9270; G0378; G0379; J1170; J1644; J1885; J2060; J2270; J2405; Q9957; Q9967